=== PATIENT | female | born 1995 | race Caucasian/White ===

== ENCOUNTER 2017-05-29 02:10 | Inpatient (IN) ==
[2017-05-29] MEDS ORDERED: MEPERIDINE 50 MG/1 ML VIAL IV PRN (02:34)
[2017-05-29] MEDS ORDERED: ONDANSETRON 4 MG/2 ML VIAL IV PRN ×2 (02:34→02:55)
[2017-05-29] MEDS ORDERED: AMPICILLIN INJ 2,000 MG in SODIUM CHLORIDE 0.9% 100 ML IV ONE (02:36)
--- NOTE | 2017-05-29 02:51 | OB/GYN History & Physical ---
History of Present Illness Chief complaint: Active labor History of present illness: Ms. Lloyd is a 21 year old female 1 para 0 EDC is 06/04/2017, presented completely dilated, bag of whyte intact, heart tones category 1, patient bleeding and is appropriate for active later. Patient states that her contractions were present most of the evening. 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 General appearance: mild distress - Antepartum / Post Antepartum Exam Cervix - Dilatation: Complete Effacement: 100% Station: 0 station Rupture: Artificial rupture membranes clear fluid - Head Head exam: Present: normal inspection - Eye Pupils: Present: PAIGE - ENT ENT exam: Present: normal exam - Neck Neck exam: Present: normal inspection - Respiratory Respiratory exam: Present: clear to auscultation bilaterally - Breast Breasts: as per HPI - Cardiovascular Cardiovascular exam: Present: regular rate and rhythm - GI/Abdominal GI/Abdominal exam: Present: normal bowel sounds, other ( heart tones) - Extremities Exam Extremities exam: Present: normal inspection - Back Exam Back exam: Present: normal inspection - Neurological Exam Neurological exam: Present: alert, oriented X3 - Psychiatric Psychiatric exam: Present: normal affect - Skin Skin exam: Present: normal color Assessment and Plan (1) Active labor at term Status: Acute Assessment and plan: Anticipate , there is no time for an epidural or labor spinal, will give appropriate IV analgesic. Current Visit: Yes
--- NOTE | 2017-05-29 02:54 | Event Note ---
Stage I of labor Artificial rupture membranes clear fluid at complete dilatation heart tones category 1 External monitoring IV fluids Stage II Episiotomy midline Nuchal cord 3 weight is pending Vaginal delivery without complication Cord blood and cord gas obtained Stage III Placenta was delivered without complication 3 cord vessels Estimated blood loss is approximately 200 cc L lidocaine was also administered nursery is present for the evaluation of the Repair of the episiotomy with 2-0 Vicryl and 3-0 chromic No complication noted
[2017-05-29] MEDS ORDERED: LANOLIN 50% CREAM 0.3 OZ TUBE TOP PRN (02:55)
[2017-05-29] MEDS ORDERED: RHO(D) IMMUNE GLOBULIN 300 MCG SYRINGE IM ONE (02:55)
[2017-05-29] MEDS ORDERED: WITCH HAZEL PADS 100/JAR TOP PRN (02:55)
[2017-05-29] MEDS ORDERED: BENZOCAINE 20%/MENTHOL 0.5% SPRAY 56 GM CAN TOP PRN (02:55)
[2017-05-29] MEDS ORDERED: MEASLES/MUMPS/RUBELLA VACCINE 0.5 ML VIAL SUBCUT ONE (02:55)
[2017-05-29] MEDS ORDERED: HYDROCORTISONE 2.5% RECTAL CREAM 30 GM TUBE TOP PRN (02:55)
[2017-05-29] MEDS ORDERED: BISACODYL 10 MG SUPP RECTAL PRN (02:55)
[2017-05-29] MEDS ORDERED: OXYTOCIN/LR 20 UNIT/1,000 ML BAG IV ONE ×2 (02:55→06:34)
[2017-05-29] MEDS ORDERED: oxyCODONE/ACETAMINOPHEN 5-325 MG TABLET PO PRN (02:55)
[2017-05-29] MEDS ORDERED: DIPH/TET/ACEL PERT BOOSTER VACCINE 0.5 ML VIAL IM ONE (02:55)
[2017-05-29] MEDS ORDERED: ACETAMINOPHEN 325 MG TABLET PO PRN (02:55)
[2017-05-29 02:57] LABS: Cord Arterial Blood HCO3 21.3 MMOL/L
[2017-05-29 02:59] LABS: Cord Venous Blood HCO3 21.4 MMOL/L; Cord Venous Blood PCO2 36.6 MMHG; Cord Venous Blood PO2 25.1
[2017-05-29] MEDS ORDERED: OXYTOCIN/LR 20 UNIT/1,000 ML BAG IV SCH (03:00)
[2017-05-29] MEDS ORDERED: LACTATED RINGERS 1,000 ML IV SCH (03:00)
[2017-05-29 03:21] LABS: Albumin 2.4 G/DL (3.4-5.0); Bilirubin,Total 0.4 MG/DL (0.2-1.0); Calcium 8.2 MG/DL (8.5-10.1); Osmolality,Calculated 270.8 MOS/KG (273-304); Potassium 3.7 MMOL/L (3.5-5.1); Total Protein 5.7 G/DL (6.4-8.3)
[2017-05-29 03:22] LABS: Basophils % 0.2 % (0.0-0.8); Eosinophils % 0.1 % (0.00-10.9); Hematocrit 32.8 VOL% (35.7-47.0); Hemoglobin 11.2 GM/DL (12.0-16.0); Immature Granulocytes % 0.3 %; Immature Granulocytes Absolute 0.03 #; Lymphocytes # 1.3 10*3/uL (1.4-4.0); Lymphocytes % 12.7 % (21.3-54.2); Mean Corpuscular HGB Conc 34.1 GM/DL (32-36); Mean Corpuscular Hemoglobin 29 PG (27-34); Mean Corpuscular Volume 83.7 FL (87-102); Mean Platelet Volume 12.4 FL (9.6-12.0); Monocytes # 0.4 10*3/uL (0.11-0.8); Neutrophils # 8.3 10*3/uL (1.4-7.4); Neutrophils % 82.7 % (38.7-73.9); Platelet Count 147 T/CUMM (130-400); Red Blood Count 3.92 MC/CUMM (3.8-5.5); Red Cell Distribution Width 13.5 % (9.3-17.3); White Blood Count 10.1 T/CUMM (4-12)
[2017-05-29 04:42] LABS: Basophils % 0.3 % (0.0-0.8); Hematocrit 31.9 VOL% (35.7-47.0); Hemoglobin 10.8 GM/DL (12.0-16.0); Immature Granulocytes % 0.7 %; Lymphocytes # 0.9 10*3/uL (1.4-4.0); Lymphocytes % 6.3 % (21.3-54.2); Mean Corpuscular HGB Conc 33.9 GM/DL (32-36); Mean Corpuscular Hemoglobin 28 PG (27-34); Mean Corpuscular Volume 83.7 FL (87-102); Mean Platelet Volume 12.6 FL (9.6-12.0); Monocytes # 0.5 10*3/uL (0.11-0.8); Monocytes % 3.3 % (1.7-12.7); Neutrophils # 12.8 10*3/uL (1.4-7.4); Neutrophils % 89.4 % (38.7-73.9); Platelet Count 148 T/CUMM (130-400); Red Blood Count 3.81 MC/CUMM (3.8-5.5); Red Cell Distribution Width 13.3 % (9.3-17.3); White Blood Count 14.3 T/CUMM (4-12)
[2017-05-29] MEDS: oxyCODONE/ACETAMINOPHEN 5-325 MG TABLET PO PRN ×2 (06:30→19:30)
[2017-05-29] MEDS: DOCUSATE SODIUM 100 MG CAPSULE PO SCH ×2 (08:20→22:30)
--- NOTE | 2017-05-29 09:04 | OB/GYN Progress Note ---
Assessment and Plan (1) Vaginal delivery Status: Acute Assessment and plan: Initiate routine orders. 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 Bonding well with . 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 - Constitutional Vitals: Vital Signs Temp Pulse Resp BP Pulse Ox 05/29/17 07:36 97.5 F L 68 20 102/78 98 05/29/17 06:39 92 H 18 114/73 100 05/29/17 05:00 71 20 124/86 99 05/29/17 04:30 64 18 119/82 99 05/29/17 04:00 98.2 F 66 20 116/78 99 05/29/17 03:07 98 F 05/29/17 02:37 98 F General appearance: no acute distress - Antepartum / Post Post Exam Breast: bilateral: normal Abdomen obstetrics: Present: bowel sounds normal Vagina: Present: normal moisture, discharge (Light lochia rubra) Uterus exam: Present: enlarged - Respiratory Respiratory exam: Present: clear to auscultation bilaterally - Cardiovascular Cardiovascular exam: Present: regular rate and rhythm - GI/Abdominal GI/Abdominal exam: Present: normal bowel sounds, soft - Extremities Exam Extremities exam: Present: normal inspection - Neurological Exam Neurological exam: Present: alert, oriented X3 - Psychiatric Psychiatric exam: Present: normal affect, normal mood - Skin Skin exam: Present: normal color, warm Results - Labs CBC & BMP: 05/29/17 04:28 05/29/17 02:48
[2017-05-29] MEDS: FERROUS SULFATE 325 MG TABLET PO SCH ×2 (09:52→22:30)
[2017-05-30] MEDS: IBUPROFEN 800 MG TABLET PO PRN ×2 (04:51→14:29)
[2017-05-30 06:08] LABS: Basophils % 0.4 % (0.0-0.8); Eosinophils % 0.6 % (0.00-10.9); Hematocrit 29.7 VOL% (35.7-47.0); Hemoglobin 9.9 GM/DL (12.0-16.0); Immature Granulocytes % 0.6 %; Immature Granulocytes Absolute 0.04 #; Lymphocytes # 2.6 10*3/uL (1.4-4.0); Lymphocytes % 37.3 % (21.3-54.2); Mean Corpuscular HGB Conc 33.3 GM/DL (32-36); Mean Corpuscular Hemoglobin 29 PG (27-34); Mean Corpuscular Volume 86.1 FL (87-102); Mean Platelet Volume 12.5 FL (9.6-12.0); Monocytes # 0.4 10*3/uL (0.11-0.8); Monocytes % 5.7 % (1.7-12.7); Neutrophils # 3.8 10*3/uL (1.4-7.4); Neutrophils % 55.4 % (38.7-73.9); Platelet Count 136 T/CUMM (130-400); Red Blood Count 3.45 MC/CUMM (3.8-5.5); White Blood Count 6.8 T/CUMM (4-12)
[2017-05-30] MEDS: FERROUS SULFATE 325 MG TABLET PO SCH ×2 (08:00→21:50)
[2017-05-30] MEDS: DOCUSATE SODIUM 100 MG CAPSULE PO SCH ×2 (08:00→21:50)
--- NOTE | 2017-05-30 12:18 | Pathology Report from [facility] ---
[employer] ACCESSION # : [id number] PATIENT NAME : Marline Reyes ORDERING DR : ALTAGRACIA CRUMP MD CLINICAL HX: IUP at 39 weeks 2 day gestation G1 POST-OP DX: Same SPECIMEN INFO: Intact placenta GROSS DESCRIPTION: Received fresh labeled with the patients name and consists of a 304 gram placenta measuring 15.8 x 12.0 cm x up to 3.1 cm. membranes are pink-castro, translucent with adherent clotted blood. The umbilical cord is eccentrically inserted, contains three vessels and measures 18.2 cm. surface is rogers-blue and circumarginate. The maternal surface is hemorrhagic with adherent clotted blood and intact cotyledons and focal areas of fibrin present. Sectioning shows focal areas of infarction. Sections submitted: A membranes and cord, B and maternal surfaces. DIAGNOSIS FOR MARLINE REYES: PLACENTA, MEMBRANES, UMBILICAL CORD: Focal placental infarction with blood and fibrin clots. Tri-vessel umbilical cord, eccentrically inserted. Membranes with focal chronic inflammation and attached blood. COLLECTED DATE: 05/29/2017 [facility] REPORT DATE: 05/30/2017 ELECTRONICALLY SIGNED BY: Reshma Ulrich M.D. 05/30/2017 - 10:24:46 [facility]
--- NOTE | 2017-05-30 18:32 | OB/GYN Progress Note ---
Assessment and Plan (1) Vaginal delivery Status: Acute Assessment and plan: Initiate routine orders. 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 Bonding well with . Exam SIDE LASTER TACK - Constitutional Vitals: Vital Signs Temp Pulse Resp BP Pulse Ox 05/30/17 15:42 98.1 F 84 18 114/67 97 05/30/17 11:25 97.1 F L 71 18 99/63 97 05/30/17 07:22 97.2 F L 71 18 117/83 98 05/30/17 06:00 16 05/30/17 04:54 97.1 F L 64 18 108/71 97 05/30/17 02:05 16 05/29/17 23:25 97.3 F L 88 16 112/60 99 05/29/17 19:30 98.3 F 75 20 111/77 98 General appearance: no acute distress - Antepartum / Post Post Exam Breast: bilateral: normal Abdomen obstetrics: Present: bowel sounds normal Vagina: Present: normal moisture, discharge (Light lochia rubra) Uterus exam: Present: enlarged (Fundus firm and midline) Anus/Rectum: Present: normal perianal skin - Respiratory Respiratory exam: Present: clear to auscultation bilaterally - Cardiovascular Cardiovascular exam: Present: regular rate and rhythm - GI/Abdominal GI/Abdominal exam: Present: normal bowel sounds, soft - Extremities Exam Extremities exam: Present: normal inspection - Neurological Exam Neurological exam: Present: alert, oriented X3 - Psychiatric Psychiatric exam: Present: normal affect, normal mood - Skin Skin exam: Present: normal color, warm Results - Labs CBC & BMP: 05/30/17 05:37 05/29/17 02:48
[2017-05-31] MEDS: oxyCODONE/ACETAMINOPHEN 5-325 MG TABLET PO PRN (00:01)
[2017-05-31 07:24] VITALS: BP 115/72
[2017-05-31] MEDS: DOCUSATE SODIUM 100 MG CAPSULE PO SCH (09:04)
[2017-05-31] MEDS: FERROUS SULFATE 325 MG TABLET PO SCH (09:04)
--- NOTE | 2017-05-31 10:00 | Discharge Summary ---
Hospital Course - Hospital Course Hospital Course: Ms. Lloyd presented to the labor department for elective induction of labor due to term . She subsequently delivered a viable with no complications. However, her infant was low birthweight and the patient was a smoker, the is in the NICU for growth and blood sugar stabilization. The patient has followed a normal course and she has done well. Her bleeding is minimal with no odor. Her perineum is intact with no edema. Her vital signs and lab values are stable. She will be discharged home prescriptions for pain and a follow-up appointment in our office. Contraception options has been discussed, patient desires a Nexplanon and will receive at her visit. Diagnosis - Discharge Diagnosis (1) Vaginal delivery Status: Acute (2) Active labor at term Status: Acute Specialty Discharge - Follow Up or Referrals Follow up with: Tyshawn Walden MD [Physician] - (Follow-up in 6 weeks.) Discharge Plan - Discharge Data Disposition: Disch To Home/Self Care Condition at Discharge: Stable Discharge Diet: advance to your usual diet, regular diet Activity: resume usual activities as tolerated Hygiene: no restrictions Weight Bearing at Discharge: weight bear as tolerated Driving: no restrictions Contact your physician if you experience:: fever over 101, pain uncontrolled by pain medications - Discharge Medications New Ferrous Sulfate Tab [Feosol Original Tab] 325 mg PO BID #60 tablet Acetamin/Codeine 300-30 Tab [Tylenol/Codeine #3] 2 tablet PO Q4H PRN #30 tablet PRN Reason: Pain Mild To Moderate (1-7) Ibuprofen Tab [Motrin Tab] 800 mg PO Q6H PRN #30 tablet PRN Reason: Pain Moderate (4-7) No Action Promethazine Tab [Phenergan Tab] 25 mg PO Q8H #20 tablet cephALEXin [Keflex] 500 mg PO Q12HR #10 capsule HYDROcodone/ACETAMIN 7.5-325 [[place] 7.5-325] 1 tablet PO Q6H #14 tablet - Follow Up or Referral Follow Up: Tyshawn Walden MD [Physician] - - Forms/Instructions Instructions: Perineal Care (DC), Vaginal Delivery (DC), Bleeding (DC) Exam - Constitutional Vitals: Period Temp Pulse Resp BP Sys/Melo Pulse Ox Last 24 Hr 97.1 F-98.1 F 66-88 16-20 99-129/63-82 97-99 General appearance: no acute distress - Respiratory Respiratory exam: Present: clear to auscultation bilaterally - Cardiovascular Cardiovascular exam: Present: regular rate and rhythm - GI/Abdominal GI/Abdominal exam: Present: normal bowel sounds, soft - Extremities Exam Extremities exam: Present: normal inspection - Neurological Exam Neurological exam: Present: alert, oriented X3 - Psychiatric Psychiatric exam: Present: normal affect, normal mood - Skin Skin exam: Present: normal color, warm DS: Provider Date of admission: 05/29/17 02:39 Primary care physician: . No PCP Attending physician on admission: Tyshawn Walden MD Consults: 05/29/17 02:34 Consult to Anesthesiology [CONS] Routine Consulting Provider: Reason for Anesthesiology: Epidural Consult Comment: Epidural for pain managment 05/29/17 02:55 Consult to Visitor Services Representative [CONS] Routine Consult Visitor Services Representative: Breast Feeding Discharging clinician: Orquidea Garrett CNM Expected date of discharge: 05/31/17
[2017-05-31] MEDS ORDERED: DIPH/TET/ACEL PERT BOOSTER VACCINE 0.5 ML VIAL IM ONE (11:01)
== END 2017-05-31 17:45 | disposition home or self-care (01) | DRG 560 ==
LOC: N.LDOUT 02:10 → N.LD 02:15 → N.OB 04:00
PROVIDERS: ADMIT Obstetrics & Gynecology; ATTEND Obstetrics & Gynecology